=== PATIENT | female | born 1980 ===

== ENCOUNTER 2017-06-28 09:11 | Outpatient (CLI) | payer OTHER ==
[2017-06-28] MEDS ORDERED: Gadobenate Dimeglumine 529 MG/1 ML (20ML VIAL) ONE (14:33)
== END 2017-06-28 09:12 | disposition home or self-care (01) ==
LOC: BICMRI 09:11
PROVIDERS: ATTEND Family Medicine
DX: G35 Multiple sclerosis (principal); R93.1 Abnormal findings on diagnostic imaging of heart and coronary circulation
CPT/HCPCS: 70553; 72156; A9579

== ENCOUNTER 2018-05-23 14:16 | Outpatient (CLI) | payer OTHER ==
--- NOTE | 2018-05-23 16:36 | ULT ---
LEFT BREAST DIAGNOSTIC ULTRASOUND 05/23/18 INDICATION: Palpable abnormality in the left breast 5 o'clock position; left breast mass identified in left breas t 10 o'clock position on the diagnostic mammogram. FINDINGS: No suspicious sonographic abnormality is seen within the physician palpated left breast 5 o'clock pos ition. Corresponding to the mammographic abnormality is a well circumscribed solid mass measuring 1.5 x 1.6 x 0.6 cm. The patient reports that this has been a palpable abnormality she has noticed recently. No additional suspicious abnormality is evident. IMPRESSION: BI-RADS 4: Suspicious Abnormality - Biopsy Should Be Considered Usually requires biopsy Recommend ultrasound core biopsy of the left breast 10 o'clock mass measuring 1.6 cm. Findings were counseled to the patient prior to [facility]. POS: OFF
--- NOTE | 2018-05-23 18:50 | ULT ---
ULTRASOUND GUIDED LEFT BREAST BIOPSY 05/23/18 INDICATION: Left breast lesion seen within the 10 o'clock position. TECHNIQUE: Informed consent was obtained. Preprocedure ultrasound demonstrated the suspicious abnormality seen w ithin the left breast 10 o'clock position, seen on the prior diagnostic evaluation. The site overlyin g the left breast was prepped and draped in the usual sterile fashion. Buffered 1% lidocaine was admi nistered overlying subcutaneous tissues. A small incision was made. A 12 gauge biopsy needle was guid ed down to the lesion. Four separate core samples were obtained through the lesion. A biopsy clip was then placed. Pressure was held at the biopsy site until hemostasis was obtained. Patient tolerated t he biopsy without difficulty. Post biopsy clip mammographic images demonstrated deployment of the cli p within the suspicious mass lesion in the left breast 10 o'clock position seen on the prior left lorne ast diagnostic mammogram. IMPRESSION: BI-RADS 4: Suspicious Abnormality - Biopsy Should Be Considered Usually requires biopsy Successful ultrasound guided core biopsy of left breast lesion 10 o'clock position. Awaiting patholog y results. POS: OFF
== END 2018-05-23 14:17 | disposition home or self-care (01) ==
LOC: BICMAMMO 14:16
PROVIDERS: ATTEND Family Medicine
DX: N63.20 Unspecified lump in the left breast, unspecified quadrant (principal); Z80.3 Family history of malignant neoplasm of breast
CPT/HCPCS: 19083; 77066; 88305; G0279